=== PATIENT | female | born 1955 | race Hispanic/Latino ===

== ENCOUNTER → 2023-03-19 | Outpatient (CLI) | payer OTHER | END | disposition home or self-care (01) | LOC: RAH 13:34 | PROVIDERS: ATTEND Internal Medicine | DX: R55 Syncope and collapse (principal); R00.2 Palpitations; R42 Dizziness and giddiness; I73.9 Peripheral vascular disease, unspecified; I70.0 Atherosclerosis of aorta | CPT/HCPCS: 93880 ==